=== PATIENT | female | born 1975 | race Caucasian/White ===

== ENCOUNTER 2020-11-28 10:53 | Emergency (ER) | payer MEDICARE, MEDICAID, SELFPAY ==
[2020-11-28] VITALS (30 sets, daily range): BP systolic 104–150; BP diastolic 61–83; PULSE 72–95; RESP 12–27; TEMP 36.1–36.4; O2SAT 93–98
--- NOTE | ~2020-11-28 | XR_ITS ---
EXAMINATION: XR chest 1V portable DATE: 11/28/2020 12:07 INDICATION: Fever. Dyspnea. TECHNIQUE: A single frontal view of the chest was obtained. COMPARISON: Chest 2 views 04/21/2019 FINDINGS: The chest demonstrates clear lungs without pneumonia, pleural effusion, or pneumothorax. Th e heart size is normal. IMPRESSION: 1. No acute cardiopulmonary disease. Reviewed, dictated and finalized at location A.
--- NOTE | ~2020-11-28 | NM_ITS ---
EXAMINATION: NM pulmonary perfusion DATE: 11/28/2020 15:30 INDICATION: Dyspnea, fever and pleuritic chest pain TECHNIQUE: 5.5 mCi Tc-99m MAA by intravenous route. Scintigraphic images of the chest were obtained. COMPARISON: Chest radiograph dated 11/28/2020 FINDINGS: Large perfusion defect involving the superior segment of the right lower lobe with small defects in t he right upper and lower lobes. Additional large perfusion defect involving the superior amount later al and anteromedial segments of the left lower lobe with additional small and moderate-sized defects in the left upper lobe and lingula red no corresponding airspace opacities on the prior chest radiogr aph. IMPRESSION: 1. High probability for pulmonary embolism. Dr. Dey discussed these findings with Dr. Schmitz at 3:40 pm. Reviewed, dictated and finalized at location A. IMPRESSION: 1. High probability for pulmonary embolism. Dr. Dey discussed these findi ngs with Dr. Schmitz at 3:40 pm.
--- NOTE | 2020-11-28 10:59 | ECG_ITS ---
Measurements Intervals [place] Rate: 90 P: 79 NV: 142 QRS: 13 QRSD: 97 T: 48 QT: 374 QTc: 460 Interpretive Statements SINUS RHYTHM POSSIBLE RIGHT ATRIAL ENLARGEMENT POSSIBLE LEFT ATRIAL ENLARGEMENT BASELINE ARTIFACT- I, II, III, AVR, AVL, AVF, V3-V6 BORDERLINE ECG Electronically Signed On 11-28-2020 12:29:42 CDT by Larry Robert D.O.
--- NOTE | 2020-11-28 10:59 | ED.SOB ---
HPI - SOB/Dyspnea General Chief Complaint: Shortness of Breath/Dyspnea Stated Complaint: fever/SOB Time Seen by Provider: 11/28/20 10:59 Source: patient Mode of arrival: wheelchair Limitations: no limitations History of Present Illness HPI Narrative: 45-year-old woman with a history of COPD comes in today complaining of fever and shortness of breath. Patient states that she has chest pain with coughing and taking a deep breath but not at rest. She states her symptoms started approximately 2 days ago. Her cough is minimally productive and she has had no vomiting, diarrhea, abdominal pain, dysuria or frequency, or known sick exposures. She has not had the COVID or influenza vaccines. MD elicited complaint: shortness of breath and cough Pertinent past history: COPD and asthma Timing: constant Severity: moderate Exacerbating factors: nothing Relieving factors: nothing Known history of: COPD and asthma Associated symptoms: fever and cough Treatment prior to arrival: none Related Data Home oxygen amount: none Home Medications Medication Instructions Recorded Confirmed escitalopram oxalate 20 mg PO DAILY 04/21/19 11/28/20 Allergies Allergy/AdvReac Type Severity Reaction Status Date / Time codeine AdvReac Unknown Verified 04/21/19 11:18 Review of Systems Constitutional: Constitutional: Denies chills, Reports fever(s) and Reports weakness Eyes: Eyes: Denies change in vision and Denies photophobia ENT: Denies nasal congestion and Denies sore throat Cardiovascular: Cardiovascular: Denies chest pain and Denies radiating jaw, neck or arm pain Respiratory: Respiratory: Reports cough, Reports dyspnea and Reports wheezing Gastrointestinal: Gastrointestinal: Denies abdominal pain, Denies diarrhea, Denies nausea and Denies vomiting Genitourinary: Genitourinary: Denies hematuria, Denies nocturia and Denies dysuria Musculoskeletal: Musculoskeletal: Denies back pain, Denies arthralgias and Denies joint swelling Integumentary/Breasts: Skin/Breast: Denies pruritus, Denies erythema and Denies rash Neurologic: Denies vertigo, Denies dizziness and Denies syncope Hematologic/Lymphatic: Hematologic/Lymphatic: Denies easy bleeding and Denies easy bruising Allergic/Immunologic: Allergic/Immunologic: Denies lip swelling and Denies throat swelling PMFSH Past Medical History Medical History (Updated 11/28/20 @ 15:47 by Mayco Schmitz MD) Anxiety Asthma Depression Surgical History Surgical History History of hysterectomy History of mandibular surgery Family History Family History Mother Family history of malignant neoplasm of cervix Social History Social History Smoking packs per day: 1 Smoking cigarettes per day: 20.0 Smoking status: Current every day smoker Tobacco type: cigarettes Alcohol intake: never Substance use type: methamphetamine Gender identity (if verbalized by the patient): Female Spiritual care concerns: No Agree to blood products: Yes Exam Const: General: healthy appearing and alert Orientation/consciousness: patient oriented x3 Other: Mild acute distress. HENMT: Head: normal to inspection Ears: external ears normal and TM's normal bilaterally Mouth: Yes moist mucous membranes Throat: posterior oropharynx normal Eyes: Conjunctivae: conjunctivae normal Pupils: Equal, round and reactive pupils present EOM: EOMs intact bilaterally Resp: Effort & Inspection: normal respiratory effort and not labored Auscultation: clear to auscultation bilaterally, no rales, no rhonchi and wheezes expiratory wheezes (Few, late) Cardio: Rate: regular rate Rhythm: regular rhythm Heart sounds: no murmurs GI: Inspection: non-distended GI Palp: Yes Soft to palpation, No Tenderness to palpation present (GI), No Guarding due to p
[2020-11-28 11:41] LABS: Influenza Control Valid (Valid)
[2020-11-28 11:42] LABS: SARS-CoV-2 Ag Negative (Negative)
[2020-11-28] MEDS: SODIUM CHLORIDE 0.9% IV 1,000 ML 999 ML IV CONT (11:57)
[2020-11-28] MEDS: ALBUTEROL SULFATE (*SP) INHALER 4 PUFF INHALATION (11:59)
[2020-11-28 12:05] LABS: Basophils Absolute Auto 0.02 K/mm3 (0.00-0.10); Basophils Percent Auto 0.2 % (0.0-1.0); Eosinophils Absolute Auto 0.36 K/mm3 (0.02-0.50); Eosinophils Percent Auto 3.8 % (1.0-6.0); Hemoglobin 13.7 g/dL (12.0-15.0); Immature Granulocyte Absolute 0.04 K/mm3 (0.00-0.00); Immature Granulocyte Percent A 0.4 % (0.0-0.0); Lymphocytes Absolute Auto 2.06 K/mm3 (1.10-4.50); Lymphocytes Percent Auto 21.5 % (18.0-42.0); Mean Corpuscular HGB Conc 34.3 g/dL (32.0-36.0); Mean Corpuscular Hemoglobin 30.9 pg (27.0-31.0); Mean Corpuscular Volume 90.1 fL (78.0-102.0); Mean Platelet Volume 8.9 fl (9.2-11.8); Monocytes Absolute Auto 0.63 K/mm3 (0.10-0.90); Monocytes Percent Auto 6.6 % (2.0-11.0); Neutrophils Absolute Auto 6.5 K/mm3 (1.7-7.2); Neutrophils Percent Auto 67.5 % (50.0-70.0); Platelet Count Result 250 K/mm3 (150-420); Red Blood Count 4.44 M/mm3 (4.20-5.40); Red Cell Distribution Width 11.6 % (11.6-14.4); White Blood Count 9.6 K/mm3 (4.8-10.8)
[2020-11-28 12:07] LABS: SARS-CoV-2 RNA PCR Negative (Negative)
[2020-11-28 12:19] LABS: D Dimer 1.07 mg/L (0.19-0.50)
[2020-11-28 12:23] LABS: Alanine Aminotransferase 16 U/L (14-59); Albumin Level 3.1 g/dL (3.4-5.0); Alkaline Phosphatase 82 U/L (46-116); Anion Gap 5 mmol/L (8-16); Aspartate Amino Transferase < 10 U/L (15-37); Bilirubin,Total 0.4 mg/dL (0.00-1.00); Blood Urea Nitrogen 6 mg/dL (7-18); Calcium 8.8 mg/dL (8.5-10.1); Carbon Dioxide 30 mmol/L (21-32); Chloride 103 mmol/L (98-108); Estimated CRCL calculation 101 ml/min; Estimated Glomerular Filt Rate > 60; Glucose 95 mg/dL (70-99); Osmolality Calculated 283 mOsm/kg (285-295); Potassium 3.9 mmol/L (3.5-5.1); Sodium 138 mmol/L (136-145); Total Protein 7.4 g/dL (6.4-8.2)
[2020-11-28 12:24] LABS: Troponin I < 4.0 ng/L (0.00-60.4)
--- NOTE | 2020-11-28 13:29 | PC.NURSE ---
ct scan unable to use 22g in left forearm for pulmonary ct, multiple attempts to start a larger bore iv with no success. dr forte aware. pt does not want any more attempts
[2020-11-28] MEDS: predniSONE 20 MG TABLET 60 MG PO (14:00)
[2020-11-28 14:45] LABS: Add Urine Microscopic? NO; Appearance Urine Clear (Clear); Bilirubin Urine Negative (Negative); Blood Urine Negative (Negative); Color Urine Light Yellow (Yellow); Glucose Urine UA Negative (Negative); Ketones Urine Negative (Negative); Leukocyte Esterase Ur Negative LEU/UL (Negative); Nitrate Urine Negative (Negative); Protein Urine Negative (Negative); Urobilinogen Urine 0.2 mg/dL (0.2-1.0)
[2020-11-28 15:26] LABS: Amphetamine Screen Urine Positive (Negative); Barbiturate Screen Urine Negative (Negative); Benzodiazepines Screen Urine Negative (Negative); Cannabinoid Screen Urine Negative (Negative); Cocaine Screen Urine Negative (Negative); Methadone Screen Urine Negative (Negative); Opiate Screen Urine Negative (Negative); Phencyclidine Screen Urine Negative (Negative)
[2020-11-28 16:11] LABS: INR 0.9; Partial Thromboplastin Time 28.2 SEC (23.90-30.70); Prothrombin Time 10.1 Seconds (9.50-12.10)
[2020-11-28] MEDS: APIXABAN 2.5 MG TABLET 10 MG PO (16:43)
== END 2020-11-28 16:49 | disposition home or self-care (01) ==
PROVIDERS: Emergency Provider Emergency Medicine; PCP Internal Medicine
DX: I26.94 Multiple subsegmental thrombotic pulmonary emboli without acute cor pulmonale (principal); F17.200 Nicotine dependence, unspecified, uncomplicated; F41.9 Anxiety disorder, unspecified; Z20.822 Contact with and (suspected) exposure to COVID-19; R06.02 Shortness of breath; F15.11 Other stimulant abuse, in remission
CPT/HCPCS: 36415; 71045; 78580; 80053; 80307; 81003; 84484; 85025; 85380; 85610; 85730; 87040; 87426; 87804; 93005; 96360; 96361; 99284; A9270; A9540; C9803; J7030; J7512; U0003; U0005

== ENCOUNTER 2020-12-02 11:39 | Outpatient (CLI) | payer MEDICARE, SELFPAY ==
[2020-12-02 12:25] LABS: Basophils Absolute Auto 0.04 K/mm3 (0.00-0.10); Basophils Percent Auto 0.5 % (0.0-1.0); Eosinophils Absolute Auto 0.33 K/mm3 (0.02-0.50); Eosinophils Percent Auto 4.3 % (1.0-6.0); Hematocrit 38.4 % (35.0-49.0); Hemoglobin 13.2 g/dL (12.0-15.0); Immature Granulocyte Absolute 0.02 K/mm3 (0.00-0.00); Immature Granulocyte Percent A 0.3 % (0.0-0.0); Lymphocytes Absolute Auto 2.16 K/mm3 (1.10-4.50); Lymphocytes Percent Auto 27.9 % (18.0-42.0); Mean Corpuscular HGB Conc 34.4 g/dL (32.0-36.0); Mean Corpuscular Hemoglobin 30.8 pg (27.0-31.0); Mean Corpuscular Volume 89.5 fL (78.0-102.0); Mean Platelet Volume 8.8 fl (9.2-11.8); Monocytes Absolute Auto 0.66 K/mm3 (0.10-0.90); Monocytes Percent Auto 8.5 % (2.0-11.0); Neutrophils Absolute Auto 4.5 K/mm3 (1.7-7.2); Neutrophils Percent Auto 58.5 % (50.0-70.0); Platelet Count Result 279 K/mm3 (150-420); Red Blood Count 4.29 M/mm3 (4.20-5.40); Red Cell Distribution Width 11.7 % (11.6-14.4); White Blood Count 7.7 K/mm3 (4.8-10.8)
[2020-12-02 14:16] LABS: Alanine Aminotransferase 22 U/L (14-59); Albumin Level 3.5 g/dL (3.4-5.0); Alkaline Phosphatase 89 U/L (46-116); Anion Gap 8 mmol/L (8-16); Aspartate Amino Transferase 14 U/L (15-37); Bilirubin,Total 0.4 mg/dL (0.00-1.00); Blood Urea Nitrogen 15 mg/dL (7-18); Calcium 9.3 mg/dL (8.5-10.1); Carbon Dioxide 31 mmol/L (21-32); Chloride 104 mmol/L (98-108); Estimated Glomerular Filt Rate > 60; Glucose 85 mg/dL (70-99); Osmolality Calculated 295 mOsm/kg (285-295); Potassium 4.3 mmol/L (3.5-5.1); Sodium 143 mmol/L (136-145); Total Protein 7.5 g/dL (6.4-8.2)
[2020-12-05 14:19] LABS: Protein S Antigen, Free 100 % normal (50-147); Protein S Antigen, Total 102 % normal (70-140)
[2020-12-05 18:49] LABS: APC Ratio 4.3 ratio (>=2.1)
[2020-12-06 04:19] LABS: Homocysteine 9.6 umol/L (<10.4)
[2020-12-06 11:31] LABS: Anti Cardio Antibody IgM <2.0 MPL-U/mL (<20.0); Anti Cardiolipin Antibody IgA <2.0 APL-U/mL (<20.0); Anti Cardiolipin Antibody IgG <2.0 GPL-U/mL (<20.0)
[2020-12-07 11:17] LABS: Factor VIII Activity 136 % normal (50-180)
[2020-12-08 12:12] LABS: Reference Lab Test Name FACTOR V (LEIDEN)
== END 2020-12-02 11:40 | disposition home or self-care (01) ==
LOC: CHSLAB 11:41
PROVIDERS: PCP Internal Medicine; Visit Provider Internal Medicine
DX: I26.99 Other pulmonary embolism without acute cor pulmonale (principal); Z79.01 Long term (current) use of anticoagulants
CPT/HCPCS: 36415; 80053; 81240; 81241; 81291; 83090; 85025; 85240; 85301; 85303; 85305; 85306; 85307; 85613; 85730; 86146; 86147; 86148

== ENCOUNTER 2020-12-09 13:23 | Outpatient (CLI) | payer MEDICARE, MEDICAID, SELFPAY ==
--- NOTE | ~2020-12-09 | US_ITS ---
EXAMINATION:US venous doppler LE BI INDICATION:Pulmonary embolism. Patient on blood thinners. TECHNIQUE: Multiple grayscale, color flow and Doppler images of the bilateral lower extremity deep ve nous systems were obtained and reviewed. COMPARISON:No prior studies for comparison. FINDINGS: The common femoral, superficial femoral and popliteal veins demonstrate normal respiratory variation, augmentation and compressibility. Color flow is also seen within the posterior tibial, pe roneal, greater saphenous and profunda veins. IMPRESSION: 1: No lower extremity deep venous thrombosis. Reviewed, dictated and finalized at location A.
--- NOTE | ~2020-12-09 | US_ITS ---
EXAMINATION: US venous doppler UE LT DATE: 12/09/2020 14:31 INDICATION: Left arm and shoulder pain. Patient on blood thinners. Pulmonary embolism. TECHNIQUE: Rowley scale images with and without compression and Doppler images of the left upper extrem ity veins were obtained. COMPARISON: None. FINDINGS: The left internal jugular vein, subclavian vein, axillary vein, brachial veins, basilic vein, radial vein, and ulnar vein are patent. Cephalic vein is not well visualized. No definite compressibility of the cephalic vein above the elbow. IMPRESSION: 1. No evidence for deep venous thrombosis. 2: Limited evaluation of the cephalic (superficial) vein. Reviewed, dictated and finalized at location A.
== END 2020-12-09 13:24 | disposition home or self-care (01) ==
LOC: CHSIMG 13:24
PROVIDERS: PCP Internal Medicine; Visit Provider Internal Medicine
DX: I26.99 Other pulmonary embolism without acute cor pulmonale (principal)
CPT/HCPCS: 93970; 93971

== ENCOUNTER 2021-08-28 21:35 | Emergency (ER) | payer OTHER, SELFPAY ==
--- NOTE | ~2021-08-28 | XR_ITS ---
EXAM: XR hand LT min 3V HISTORY: swelling with redness, possible foreign body COMPARISON: None available FINDINGS: Normal mineralization. No fracture or dislocation. No lytic or blastic lesion. Joint space s maintained. No erosion or periosteal change. No radiopaque foreign body. Dorsal soft tissue swellin g. IMPRESSION: No acute osseous finding in the left hand. No radiopaque foreign body. Reviewed, dictated and finalized at location K.
[2021-08-28 21:43] VITALS: BP 117/67; PULSE 98; RESP 20; TEMP 36.3; O2SAT 98
--- NOTE | 2021-08-28 21:46 | ED.EXTPRO ---
HPI - Extremity Problem General Chief complaint: Extremity Injury, Upper Stated complaint: possible infection in hand Time Seen by Provider: 08/28/21 21:46 Source: patient and RN notes reviewed Mode of arrival: ambulatory Limitations: no limitations History of Present Illness HPI Narrative: Patient states she was using a level vial inside grinder on some metal 3 days ago. A piece of metal flew off and went into her left hand. She thinks she got it all out and then she poured peroxide in it. Now with swelling with redness and the redness is progressing up her left forearm. Complaint: extremity pain and extremity swelling Onset (ago): day(s) (2) Pain Consistency: constant Location: right and upper extremity (hand) Quality: burning, aching and constant Radiation: proximal Relieving factors: nothing Exacerbating factors: range of motion and palpation Associated symptoms: denies other symptoms Related Data Home Medications Medication Instructions Recorded Confirmed escitalopram oxalate 20 mg PO DAILY 04/21/19 08/28/21 Allergies Allergy/AdvReac Type Severity Reaction Status Date / Time codeine AdvReac Unknown Verified 08/28/21 21:52 Review of Systems Review of Systems: All systems reviewed & are unremarkable except as noted in HPI and below Constitutional: Constitutional: Denies chills and Denies fever(s) Gastrointestinal: Gastrointestinal: Denies nausea and Denies vomiting PMFSH Past Medical History Medical History (Updated 08/28/21 @ 23:10 by Fortino Frederick MD) Anxiety Asthma Body mass index [BMI] 32.0-32.9, adult (05/21/18) Depression Surgical History Surgical History History of hysterectomy History of mandibular surgery Family History Family History Mother Family history of malignant neoplasm of cervix Social History Social History Smoking packs per day: 1 Smoking cigarettes per day: 20.0 Smoking status: Current every day smoker Tobacco type: cigarettes Alcohol intake: never Substance use type: methamphetamine Gender identity (if verbalized by the patient): Female Spiritual care concerns: No Agree to blood products: Yes Exam Const: General: healthy appearing, no acute distress and alert Nutritional Appearance: well nourished Orientation/consciousness: patient oriented x3 HENMT: Head: normal to inspection Ears: external ears normal Eyes: Conjunctivae: conjunctivae normal Pupils: Equal, round and reactive pupils present EOM: EOMs intact bilaterally Neck: Neck: normal visual inspection Resp: Effort & Inspection: normal respiratory effort Auscultation: wheezes scattered wheezes Cardio: Rate: regular rate Rhythm: regular rhythm GI: GI Palp: Yes Soft to palpation and No Tenderness to palpation present (GI) Auscultation: normal bowel sounds Back/Spine/Pelvis: Cervical Spine: cervical ROM normal Thoracic/Lumbar Spine: thoraco-lumbar ROM normal Skin: General skin exam: normal color and erythema ( Dorsum of left hand,base of the left thumb extending to the wrist forearm) Rashes: other Other: increased warmth and swelling Dorsum of left hand,base of the left thumb extending to the wrist forearm Neuro: General: patient oriented x3, moves all extremities, no focal motor deficits and CN's II-XI intact bilaterally Speech: normal speech Gait exam (Neuro): Normal gait present Extrem: General: full ROM, normal exam except as noted and no clubbing, cyanosis or edema Psych: Appearance: grossly normal and well kempt Mental Status: mental status grossly normal Affect: normal affect Attitude: cooperative Thought content: Yes Normal thought content present Course Vital Signs Vital signs: Vital Signs Temperature 36.3 C L 08/28/21 21:43 Pulse Rate 98 08/28/21 21:43 Respiratory Rate 20 08/28/21 21:43 Blood
[2021-08-28 22:14] LABS: Basophils Absolute Auto 0.04 K/mm3 (0.00-0.10); Basophils Percent Auto 0.4 % (0.0-1.0); Eosinophils Absolute Auto 0.34 K/mm3 (0.02-0.50); Eosinophils Percent Auto 3.3 % (1.0-6.0); Hematocrit 38.8 % (35.0-49.0); Hemoglobin 12.9 g/dL (12.0-15.0); Immature Granulocyte Absolute 0.03 K/mm3 (0.00-0.00); Immature Granulocyte Percent A 0.3 % (0.0-0.0); Lymphocytes Absolute Auto 2.35 K/mm3 (1.10-4.50); Lymphocytes Percent Auto 22.5 % (18.0-42.0); Mean Corpuscular HGB Conc 33.2 g/dL (32.0-36.0); Mean Corpuscular Hemoglobin 30.8 pg (27.0-31.0); Mean Corpuscular Volume 92.6 fL (78.0-102.0); Mean Platelet Volume 9.4 fl (9.2-11.8); Monocytes Percent Auto 8.6 % (2.0-11.0); Neutrophils Absolute Auto 6.8 K/mm3 (1.7-7.2); Neutrophils Percent Auto 64.9 % (50.0-70.0); Platelet Count Result 213 K/mm3 (150-420); Red Blood Count 4.19 M/mm3 (4.20-5.40); Red Cell Distribution Width 12.2 % (11.6-14.4); White Blood Count 10.4 K/mm3 (4.8-10.8)
[2021-08-28 22:26] LABS: Anion Gap 6 mmol/L (8-16); Blood Urea Nitrogen 11 mg/dL (7-18); Calcium 8.4 mg/dL (8.5-10.1); Carbon Dioxide 31 mmol/L (21-32); Chloride 103 mmol/L (98-108); Estimated CRCL calculation 68 ml/min; Estimated Glomerular Filt Rate > 60; Glucose 98 mg/dL (70-99); Osmolality Calculated 289 mOsm/kg (285-295); Potassium 3.5 mmol/L (3.5-5.1); Sodium 140 mmol/L (136-145)
[2021-08-28 22:35] LABS: Lactic Acid Reflex 0.8 mmol/L (0.4-2.0)
[2021-08-28] MEDS: CEPHALEXIN 500 MG CAPSULE PO (23:17)
[2021-08-28 23:34] VITALS: BP 115/76; PULSE 102; RESP 16; O2SAT 96
== END 2021-08-28 23:35 | disposition home or self-care (01) ==
PROVIDERS: Emergency Provider Emergency Medicine; PCP Internal Medicine
DX: L03.114 Cellulitis of left upper limb (principal)
CPT/HCPCS: 36415; 73130; 80048; 83605; 85025; 87040; 99283; A9270

== ENCOUNTER 2021-11-14 22:31 | Emergency (ER) | payer OTHER, SELFPAY ==
[2021-11-14] VITALS (8 sets, daily range): BP systolic 102–122; BP diastolic 54–78; PULSE 98; RESP 22; TEMP 36.8; O2SAT 93–96
--- NOTE | ~2021-11-14 | XR_ITS ---
EXAMINATION: XR chest 2V DATE: 11/14/2021 23:57 INDICATION: Smoker presenting with acute onset shortness of breath TECHNIQUE: frontal and lateral views of the chest were obtained. COMPARISON: Chest radiograph dated 11/28/2020 FINDINGS: Remain hyperexpanded with increased lucency at the retrosternal clear space and in the right midlung zone suggestive but not diagnostic of COPD . No focal airspace opacities, pulmonary edema, pleural ef fusion or pneumothorax. The cardiomediastinal silhouette is normal. Mild to moderate thoracic and upp er lumbar spondylosis. IMPRESSION: 1. Appearance suggestive but not diagnostic of COPD with no other acute cardiopulmonary disease. Reviewed, dictated and finalized at location A. IMPRESSION: 1. Appearance suggestive but not diagnostic of COPD with no other acute cardiop ulmonary disease.
--- NOTE | 2021-11-14 22:35 | ED.CHESTPAIN ---
HPI - Chest Pain General Chief Complaint: Chest Pain Stated Complaint: chest pain/sob Time Seen by Provider: 11/14/21 22:35 Source: patient History of Present Illness HPI narrative: patient states she has a history of a pulmonary embolism and stop taking her Eliquis about 1 month ago because she ran out. She had her pulmonary embolism in November of 2020. She says that she has been having cough and chest pain from the cough for the last 2-3 days. She has body aches, sore throat, headache, nausea. MD complaint: chest discomfort Pertinent past history: other (PE) Onset (ago): day(s) (2-4 days) Timing of current episode: constant Prior episodes: Yes Onset: during rest Pain location: substernal Pain radiation: none Severity: moderate Quality: aching and dull Relieving factors: nothing Exacerbating factors: nothing Associated symptoms: nausea, fever and cough Treatment prior to arrival: none Risk Factors Coronary artery disease risk factors: smoking history Pulmonary embolism risk factors: history of pulmonary embolism Related Data Home Medications Medication Instructions Recorded Confirmed albuterol sulfate 90 mcg/actuation 90 mcg inhalation PRN PRN 11/14/21 11/14/21 aerosol inhaler Shortness Of Breath Allergies Allergy/AdvReac Type Severity Reaction Status Date / Time codeine AdvReac Unknown Verified 11/14/21 22:47 Review of Systems Review of Systems: All systems reviewed & are unremarkable except as noted in HPI and below PMFSH Past Medical History Medical History Anxiety Asthma Body mass index [BMI] 32.0-32.9, adult (05/21/18) Depression Surgical History Surgical History History of hysterectomy History of mandibular surgery Family History Family History Mother Family history of malignant neoplasm of cervix Social History Social History Smoking packs per day: 1 Smoking cigarettes per day: 20.0 Smoking status: Current every day smoker Tobacco type: cigarettes Alcohol intake: never Substance use type: methamphetamine Gender identity (if verbalized by the patient): Female Spiritual care concerns: No Agree to blood products: Yes Exam Const: General: healthy appearing, alert and ill appearing acutely Nutritional Appearance: well nourished Orientation/consciousness: patient oriented x3 Limitations: no limitations HENMT: Head: normal to inspection Ears: external ears normal Eyes: Conjunctivae: conjunctivae normal Pupils: Equal, round and reactive pupils present EOM: EOMs intact bilaterally Neck: Neck: normal visual inspection Resp: Effort & Inspection: normal respiratory effort Auscultation: rhonchi right upper ( Anteriorly) and right lower ( posteriorly) Cardio: Rate: regular rate Rhythm: regular rhythm Heart sounds: no murmurs GI: Inspection: normal to inspection GI Palp: Yes Soft to palpation, No Tenderness to palpation present (GI) and No Guarding due to palpation present (GI) Auscultation: normal bowel sounds Back/Spine/Pelvis: Cervical Spine: cervical ROM normal Thoracic/Lumbar Spine: thoraco-lumbar ROM normal Skin: General skin exam: normal color Rashes: no rashes Neuro: General: patient oriented x3, moves all extremities, no focal motor deficits and CN's II-XI intact bilaterally Speech: normal speech Gait exam (Neuro): Normal gait present Extrem: General: normal to inspection and no clubbing, cyanosis or edema Psych: Appearance: grossly normal and disheveled Affect: normal affect Attitude: cooperative Course Vital Signs Vital signs: Vital Signs Temperature 36.8 C 11/14/21 22:43 Pulse Rate 98 11/14/21 22:43 Respiratory Rate 22 H 11/14/21 22:43 Blood Pressure 102/54 L 11/14/21 22:43 Pulse Oximetry 93 11/14/21 22:43 Oxygen
--- NOTE | 2021-11-14 22:42 | ECG_ITS ---
Measurements Intervals [place] Rate: 99 P: 81 MN: 152 QRS: 30 QRSD: 98 T: 80 QT: 343 QTc: 440 Interpretive Statements SINUS RHYTHM POSSIBLE RIGHT ATRIAL ENLARGEMENT BORDERLINE T WAVE ABNORMALITY- HIGH LATERAL LEADS BASELINE ARTIFACT- I, II, III, AVR, AVL, V1-V6 BORDERLINE ECG Electronically Signed On 11-15-2021 6:50:13 CDT by Larry Robert D.O.
[2021-11-14 23:01] LABS: Basophils Absolute Auto 0.04 K/mm3 (0.00-0.10); Basophils Percent Auto 0.4 % (0.0-1.0); Eosinophils Absolute Auto 0.15 K/mm3 (0.02-0.50); Eosinophils Percent Auto 1.3 % (1.0-6.0); Hematocrit 36.5 % (35.0-49.0); Hemoglobin 12.4 g/dL (12.0-15.0); Immature Granulocyte Absolute 0.03 K/mm3 (0.00-0.00); Immature Granulocyte Percent A 0.3 % (0.0-0.0); Lymphocytes Absolute Auto 1.68 K/mm3 (1.10-4.50); Lymphocytes Percent Auto 14.8 % (18.0-42.0); Mean Corpuscular Hemoglobin 31.3 pg (27.0-31.0); Mean Corpuscular Volume 92.2 fL (78.0-102.0); Mean Platelet Volume 9.1 fl (9.2-11.8); Monocytes Percent Auto 7.1 % (2.0-11.0); Neutrophils Absolute Auto 8.6 K/mm3 (1.7-7.2); Neutrophils Percent Auto 76.1 % (50.0-70.0); Platelet Count Result 203 K/mm3 (150-420); Red Blood Count 3.96 M/mm3 (4.20-5.40); Red Cell Distribution Width 11.9 % (11.6-14.4); White Blood Count 11.3 K/mm3 (4.8-10.8)
[2021-11-14 23:14] LABS: D Dimer 0.37 mg/L (0.19-0.50)
[2021-11-14 23:19] LABS: Alanine Aminotransferase 20 U/L (14-59); Albumin Level 3.3 g/dL (3.4-5.0); Alkaline Phosphatase 77 U/L (46-116); Anion Gap 5 mmol/L (8-16); Aspartate Amino Transferase 14 U/L (15-37); Bilirubin,Total 0.7 mg/dL (0.00-1.00); Blood Urea Nitrogen 16 mg/dL (7-18); Calcium 8.6 mg/dL (8.5-10.1); Carbon Dioxide 31 mmol/L (21-32); Chloride 102 mmol/L (98-108); Estimated Glomerular Filt Rate > 60; Glucose 142 mg/dL (70-99); Magnesium 2.1 mg/dL (1.8-2.4); Osmolality Calculated 289 mOsm/kg (285-295); Potassium 3.1 mmol/L (3.5-5.1); Sodium 138 mmol/L (136-145); Total Protein 6.9 g/dL (6.4-8.2); Troponin I 4.3 ng/L (0.00-60.4)
[2021-11-14 23:20] LABS: CRP 5.7 mg/dL (0.0-0.9)
[2021-11-14 23:39] LABS: Influenza A QL RT-PCR Negative (Negative); Influenza B QL RT-PCR Negative (Negative); SARS-CoV-2 RNA PCR Negative (Negative)
[2021-11-15] VITALS: PULSE 87; O2SAT 94
== END 2021-11-15 00:40 | disposition home or self-care (01) ==
PROVIDERS: Emergency Provider Emergency Medicine; PCP Internal Medicine
DX: J06.9 Acute upper respiratory infection, unspecified (principal); Z20.822 Contact with and (suspected) exposure to COVID-19
CPT/HCPCS: 36415; 71046; 80053; 83605; 83735; 84484; 85025; 85380; 86140; 87502; 93005; 99284; C9803; U0003; U0005

== ENCOUNTER 2022-09-07 18:20 | Emergency (ER) | payer OTHER, SELFPAY ==
[2022-09-07 18:20] VITALS: BP 118/71; PULSE 104; RESP 20; TEMP 36.8; O2SAT 96
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
[2022-09-07] MEDS: IPRATROPIUM 0.5 MG/ALBUTEROL SULFATE 2.5 MG AMPUL.NEB 3 ML INHALATION (18:49)
[2022-09-07 18:50] VITALS: PULSE 93; RESP 19; O2SAT 96
[2022-09-07 18:54] VITALS: PULSE 102; RESP 19; O2SAT 99
--- NOTE | 2022-09-07 19:00 | PC.NURSE ---
report to regla sands. all questions answered.
--- NOTE | 2022-09-07 19:07 | PC.NURSE ---
Assumed care of pt from SA[facility]. Agree with previous shift assessment. PT reports marked improvement post neb tx. Expiratory wheezes throughout diminished in bases. Pt speaking in full sentences with registration at this time. No distress noted. SpO2 on RA 94%
[2022-09-07] MEDS: predniSONE 20 MG TABLET PO (19:13)
[2022-09-07 19:46] VITALS: BP 113/69; PULSE 96; RESP 18; TEMP 37.2; O2SAT 96
== END 2022-09-07 20:02 | disposition home or self-care (01) ==
PROVIDERS: Emergency Provider Emergency Medicine; PCP Internal Medicine
DX: J45.909 Unspecified asthma, uncomplicated (principal); F17.210 Nicotine dependence, cigarettes, uncomplicated
CPT/HCPCS: 94640; 99283; J7512

== ENCOUNTER 2022-11-15 17:07 | Emergency (ER) | payer OTHER, SELFPAY ==
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
[2022-11-15 17:07] VITALS: BP 112/74; PULSE 73; RESP 20; TEMP 36.9; O2SAT 95
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
--- NOTE | 2022-11-15 17:36 | PC.NURSE ---
1719-PHYSICIAN ARRIVES AT BEDSIDE
--- NOTE | 2022-11-15 17:37 | PC.NURSE ---
1736-PT TRANSPORTED FOR IMAGING, ESCORTED BY [facility]
[2022-11-15] MEDS: TETANUS,DIPHTHERIA,AC PERTUSSIS ADULT 0.5 ML (ADACEL) IM (17:55)
[2022-11-15 18:04] VITALS: BP 120/76; PULSE 79; RESP 20; O2SAT 98
--- NOTE | 2022-11-15 18:04 | PC.NURSE ---
1800-PT RETURNS FROM IMAGING, ESCORTED BY SMART ENERGY SPECIALIST. PHYSICIAN AT BEDSIDE FOR LACERATION REPAIR.
--- NOTE | 2022-11-15 18:06 | PC.NURSE ---
PT PROVIDED WITH MEAL BOX AND PEPSI
--- NOTE | 2022-11-15 18:20 | PC.NURSE ---
182-PHYSICIAN AT BEDSIDE DISCUSSING RESULTS WITH PT
--- NOTE | 2022-11-15 18:24 | PC.NURSE ---
1824-WEBSITE OPTIMIZATION STRATEGIST CONTACTED [facility] REGARDING ED-ED TRANSFER. RUG LAYER ADVISED WE DON'T DO ED TO ED TRANSFERS IT WOULD HAVE TO BE ACCEPTED BY HOSPITALIST/SPECIAL SERVICES. PHYSICIAN AGREES. INFORMATION PROVIDED TO RUG LAYER. RUG LAYER REQUESTS IMAGES BE PUSHED OVER FOR TRAUMA/ORTHO. WEBSITE OPTIMIZATION STRATEGIST ACKNOWLEDGES. WEBSITE OPTIMIZATION STRATEGIST EXPECTING CALL BACK ONCE IMAGING REVIEWED BY TRAUMA/ORTHO SERVICES [facility]. PHYSICIAN IS MADE AWARE. CHU, RADIOLOGY CONTACTED AND ADVISED OF PUSHING IMAGES TO [facility].
--- NOTE | 2022-11-15 18:54 | PC.NURSE ---
184-PT SON ARRIVES. AMA PAPERWORK OBTAINED AND SIGNED. AT THIS TIME, NURSING STAFF MADE AWARE PT SPOUSE PRESENT IN HOSPITAL PARKING LOT. PHYSICIAN SPOKE WITH PT AND ADVISED NOT SAFE AT THIS TIME FOR HER EXITING HOSPITAL. SAÚL PRESTON CONTACTED PD. PD ARRIVES, PT SPOUSE DETAINED, PT MADE AWARE SAFE FOR DEPARTURE. PT NOTED TO BE AMBULATORY WITH STEADY GAIT, APPEARS IN NAD. PT IS ACCOMPANIED BY SON AT TIME OF DEPARTURE.
== END 2022-11-15 18:44 | disposition left against medical advice (07) ==
PROVIDERS: Emergency Provider Emergency Medicine; PCP Internal Medicine
DX: S02.609A Fracture of mandible, unspecified, initial encounter for closed fracture (principal); S01.412A Laceration without foreign body of left cheek and temporomandibular area, initial encounter; F41.9 Anxiety disorder, unspecified; F32.A Depression, unspecified; F17.210 Nicotine dependence, cigarettes, uncomplicated; Z23 Encounter for immunization; Y04.2XXA Assault by strike against or bumped into by another person, initial encounter; Y92.009 Unspecified place in unspecified non-institutional (private) residence as the place of occurrence of the external cause
CPT/HCPCS: 12011; 70450; 70486; 72125; 90471; 90715; 99284

== ENCOUNTER 2025-02-17 03:18 | Emergency (ER) | payer MEDICARE, SELFPAY ==
[2025-02-17 03:18] VITALS: BP 124/77; PULSE 106; RESP 18; TEMP 36.9; O2SAT 100
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
[2025-02-17] MEDS: CLINDAMYCIN HCL 150 MG CAP 450 MG PO (03:36)
--- OUTSIDE RECORDS SUMMARY | 2025-02-17 03:38 | XMS_ITS | Clinical Summary ---
Author Organization [facility] Address [facility] [place] [address] Care Team Providers Care Play Leader Name Role Phone Vishnu Jimenez MD Primary Care Provider [phone] Allergies Active Allergy Reactions Criticality Noted Date Comments Codeine Unknown 01/01/2020 Medications escitalopram 20 MG tablet Take 20 mg by mouth daily. Active albuterol sulfate HFA (PROAIR HFA) 108 (90 Base) MCG/ACT inhaler Inhale 2 puffs into the lungs every 6 (six) hours as needed for Wheezing. Active HYDROcodone-aaron taminophen 5-325 MG tabletIndicatio ns:Acute Pain < 3 Day Supply Take 1-2 tablets by mouth every 6 (six) hours as needed. Indications: Acute Pain < 3 Day Supply 12 tablet 01/01/2020 Active methylPREDNISol one, GAURANG, 4 MG tablet Take 1 tablet (4 mg total) by mouth daily. 6 TABLETS ON DAY ONE, 5 TABLETS DAY TWO, 4 TABLETS DAY THREE, 3 TABLETS DAY FOUR, 2 TABLETS DAY FIVE, AND 1 TABLET DAY SIX 1 each 08/23/2020 Active Immunizations Immunization Administration Dates Next Due Tdap (Boostrix) 01/01/2020 Family History Medical History Relation Comments Diabetes Father Heart Disease Mother Relation Status Comments Father Mother Social History Tobacco Use Types Packs/Day Years Used Date Smoking Tobacco: Every Day Cigarettes Smokeless Tobacco: Current Alcohol Use Standard Drinks/Week Comments Yes 0 (1 standard drink = 0.6 oz pur e alcohol) AUDIT-C Answer Date Recorded Frequency of Alcohol Consumption Never 09/27/2018 Average Number of Drinks Not on file 019 Frequency of Binge Drinking Not on file 11/2018 Comments No Sex and Gender Information Value Date Recorded Sex Assigned at Not on file Legal Sex Female 6:00 PM MED PEDS Gender Identity Not on file Sexual Orientation Not on file Last Filed Vital Signs Vital Sign Reading Time Taken Comments Blood Pressure 148/76 08/23/2020 6:00 PM CDT Pulse 96 08/23/2020 5:55 PM CDT Temperature 36 C (96.8 F) 08/23/2020 5:55 PM CDT Respiratory Rate 18 08/23/2020 5:55 PM CDT Oxygen Saturation 99% 08/23/2020 5:55 PM CDT Inhaled Oxygen Concentration - - Weight 85.3 kg (188 lb) 08/23/2020 5:55 PM CDT Height 170.2 cm (5' 7) 08/23/2020 5:55 PM CDT Body Mass Index 29.44 08/23/2020 5:55 PM CDT Plan of Treatment Health Maintenance Due Date Last Done Comments Colorectal Cancer Screening Colonoscopy (10 Years) 1974 Annual Physical 1977 Pneumococcal Vaccine: 50+ Ye ars (1 of 2 - PCV) 1993 Hepatitis B Vaccines (2 of 3 - Hep B Twinrix 3-dose series) 11/22/2005 10/25/2005 Mammogram Screening 2014 Zoster Vaccines (1 of 2) 02/22/2024 COVID-19 Vaccine (1 - 2024-2 6 season) 2024 Influenza Adult (#1) 2025 DTaP, Tdap and Td Vaccines ( 2 - Td or Tdap) 12/31/2029 01/01/2020 Hepatitis A Vaccines Aged Out 10/25/2005 No long er eligible based on patient's age to complete this topic Hepatitis C Completed 06/20/2009 Meningococcal B Vaccine Aged Out No l onger eligible based on patient's age to complete this topic Meningococcal Vaccine Aged Out No jessica meenakshi eligible based on patient's age to complete this topic RSV Immunizations Under 20 Months Aged Out No longer eligible based on patient's age to complete this topic Insurance MEDICARE MEDICAID Advance Directives Documents on File Type Date Recorded Patient Clothes Marker Expl anation Advance Directives and Living Will 12/04/2014 SHORT FORM POWER OF CONSUMER LOAN PROCESSOR Advance Directives and Living Will 09/21/2014 SHORT FORM POWER OF CONSUMER LOAN PROCESSOR Advance Directives and Living Will 11/08/2012 SHORT FORM POWER OF CONSUMER LOAN PROCESSOR Advance Directives and Living Will 10/20/2012 SHORT FORM POWER OF CONSUMER LOAN PROCESSOR Advance Directives and Living Will 10/20/2012 ADVANCE DIRECTIVE Care Teams Play Leader Relationship Specialty Start Date End Date Vishnu Jimenez MD [address] [place] [address] PCP - General INTERNAL MEDICINE 09/27/18
[2025-02-17 04:01] VITALS: BP 124/68; PULSE 84; RESP 16; O2SAT 94
== END 2025-02-17 04:01 | disposition home or self-care (01) ==
PROVIDERS: Emergency Provider Emergency Medicine; PCP Internal Medicine
DX: L08.9 Local infection of the skin and subcutaneous tissue, unspecified (principal); B96.89 Other specified bacterial agents as the cause of diseases classified elsewhere; F17.210 Nicotine dependence, cigarettes, uncomplicated
CPT/HCPCS: 99283

== ENCOUNTER 2025-02-19 04:45 | Emergency (ER) | payer MEDICARE, SELFPAY ==
[2025-02-19 04:45] VITALS: BP 117/72; PULSE 84; RESP 18; TEMP 36.5; O2SAT 98
--- OUTSIDE RECORDS SUMMARY | 2025-02-19 04:48 | XMS_ITS | Clinical Summary ---
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 Gender Identity Not on file Sexual Orientation [...] Documents on File Type Date Recorded Patient Trimming Cutter Expl anation Advance Directives and Living Will 12/04/2014 SHORT FORM POWER OF MESSENGER FLOORPERSON Advance Directives and Living Will 09/21/2014 SHORT FORM POWER OF MESSENGER FLOORPERSON Advance Directives and Living Will 11/08/2012 SHORT FORM POWER OF MESSENGER FLOORPERSON Advance Directives and Living Will 10/20/2012 SHORT FORM POWER OF MESSENGER FLOORPERSON Advance Directives and Living Will 10/20/2012 ADVANCE DIRECTIVE Care Teams Housekeeper Cleaning Cooking Relationship Specialty Start Date End Date Vishnu Jimenez MD [address] [place] [address] PCP - General INTERNAL MEDICINE 09/27/18
--- NOTE | 2025-02-19 05:33 | ED.SKABFB ---
HPI - Skin/Abscess/Foreign Bdy General Chief complaint: Skin/Abscess/Foreign Body Stated complaint: spider bite Time Seen by Provider: 02/19/25 04:53 Source: patient Mode of arrival: ambulatory Limitations: no limitations History of Present Illness HPI narrative: This is a 49-year-old female that presents with a insect bite with redness erythema some mild drainage to her posterior right calf that occurred approximately 3 days ago she was wounds and was bitten by a spider. Currently there is no fever chills the area is warm red tender to touch nonfluctuant no nausea vomiting no shortness of breath. Patient was seen here 2 days ago and started on clindamycin and has been on clindamycin last couple of days and the erythema has progressed despite the antibiotics she is currently on. complaint: insect bite/sting and abscess/boil Onset (ago): day(s) Location: RLE Severity: moderate Severity scale (1-10): 4 Related Data Allergies Allergy/AdvReac Type Severity Reaction Status Date / Time codeine AdvReac Mild Nausea and Verified 02/19/25 04:58 Vomiting Review of Systems Review of Systems: All systems reviewed & are unremarkable except as noted in HPI and below PMFSH Past Medical History Medical History Body mass index [BMI] 32.0-32.9, adult (05/21/18) Depression Anxiety Asthma Surgical History Surgical History History of mandibular surgery History of hysterectomy Family History Family History Mother Family history of malignant neoplasm of cervix Social History Social History Smoking packs per day: 1 Smoking cigarettes per day: 20.0 Smoking status: Current every day smoker Tobacco type: cigarettes Alcohol intake: never Substance use type: methamphetamine Gender identity (if verbalized by the patient): Female Spiritual care concerns: No Agree to blood products: Yes Exam Const: General: healthy appearing Nutritional Appearance: well nourished Orientation/consciousness: patient oriented x3 Limitations: no limitations Resp: Effort & Inspection: normal respiratory effort Auscultation: clear to auscultation bilaterally Cardio: Rate: regular rate Rhythm: regular rhythm GI: GI Palp: Yes Soft to palpation Auscultation: normal bowel sounds Skin: Wounds: wounds noted Other: Central punctate lesion with drainage and surrounding erythema approximately 3cm in diameter warm and tender to touch. Course Course Emergency Course: Medical decision making narrative: The patient was evaluated by myself in the emergency department. History obtained from the patient was independent historian physical exam performed witnessed by nurse. Patient received 1g IM ceftriaxone in the emergency department. Repeat assessment Patient doing well with no acute distress Repeat vitals are stable Patient agrees with discussion and after shared medical decision making and agrees with discharge. All questions answered to the patient's satisfaction. Advised follow-up with primary in the next 3 to 5 days further evaluation and treatment. Vital Signs Vital signs: Vital Signs Temperature 36.5 C 02/19/25 04:45 Pulse Rate 84 02/19/25 04:45 Respiratory Rate 18 02/19/25 04:45 Blood Pressure 117/72 02/19/25 04:45 Pulse Oximetry 98 02/19/25 04:45 Oxygen Delivery Room Air 02/19/25 04:45 Temperature 36.5 C 02/19/25 04:45 Pulse Rate 84 02/19/25 04:45 Respiratory Rate 18 02/19/25 04:45 Blood Pressure 117/72 02/19/25 04:45 Pulse Oximetry 98 02/19/25 04:45 Oxygen Delivery Room Air 02/19/25 04:45 Critical Care Time Critical Care Time Critical Care Time: No Discharge Plan Discharge Clinical Impression: Insect bites, Cellulitis Patient Disposition: Home Condition: Stable Instructions: Antibiotic Form, Cellulitis (ED), Insect Bite or Sting (ED) Additional Instructions: Advised patient to discontinue clindamycin, start a medication prescribed and follow with primary in the next 3 to 5 days for further evaluation and treatment. Can take Tylenol or Motrin as needed to help with inflammation along with antibiotic. Patient Language: Mohawk Prescriptions: New amoxicillin-pot clavulanate [Augmentin] 500-125 mg tablet 1 tablet PO TID Qty: 30 0RF No Action clindamycin HCl [Cleocin HCl] 300 mg capsule 450 mg PO Q8H 7 Days Qty: 32 0RF mupirocin [Centany] 2 % ointment 1 applic topical TID Qty: 22 0RF Follow-up/Referrals: Vishnu Jimenez MD [Primary Care Provider, Internal Medicine] Time of Disposition: 05:38
[2025-02-19] MEDS: cefTRIAXone 1 GM, LIDOCAINE 1% LOCAL INJ 2.1 ML IM (05:41)
[2025-02-19 05:50] VITALS: BP 115/62; PULSE 70; RESP 18; O2SAT 99
== END 2025-02-19 05:50 | disposition home or self-care (01) ==
PROVIDERS: Emergency Provider Emergency Medicine; PCP Internal Medicine
DX: S80.861A Insect bite (nonvenomous), right lower leg, initial encounter (principal); L03.115 Cellulitis of right lower limb; F17.210 Nicotine dependence, cigarettes, uncomplicated; W57.XXXA Bitten or stung by nonvenomous insect and other nonvenomous arthropods, initial encounter
CPT/HCPCS: 96372; 99283; J0696; J2003